=== PATIENT | male | born 1980 | race Caucasian/White ===

== ENCOUNTER 2024-07-23 14:30 | Inpatient (IN) | payer OTHER, SELFPAY ==
[2024-07-23] VITALS (9 sets, daily range): BP systolic 115–145; BP diastolic 59–97
--- NOTE | 2024-07-23 12:25 | W.PN.CARDCBS ---
Today's Communication / Plan
-
NSTEMI, Angioplasty with stent to LAD
serial troponin to peak
DAPT
Cardiac rehab
Impression / Plan
-
This is a summary, H&P scanned
PCP: Ammy Baeza MD
CDY: Ayaz Norris MD (new to pt)
43-year-old male with history of hyperlipidemia, tobacco use disorder and daily alcohol use who c/o over 24 hours of intermittent chest and throat burning. He had began having CP 'out of nowhere' at about 10-11 pm the previous night that continued
after he awakened into the day. CP became worse radiating to left arm and he presented to ER. Denied SOB, nausea or vomiting, fever or cough. No FH of early CAD. His troponin HS continues to trend up 59-201-210. EKG with anterior TWI. He is being
transferred today for [facility].
Impression:
NSTEMI
Hyperlipidemia
Active smoker
Daily ETOH use
Anxiety
h/o hernia repair
h/o appendectomy
Arthritis L hip post THR 2020
07/23/24 ECHO- LVEF 55%, no WMA, no sig valvular disease
Plan:
Admit IVU post PCI LAD
serial troponin to peak
DAPT ASA/Plavix
Check Lipids - start Atorvastatin 80mg
New start to BB, add JW/ARB if BP elevated
smoking cessation - only smoking 5/day, for 20yrs, nicotine patch declined
ETOH use d/o - 2-3 beers daily, reinforced abstinence, MSAS protocol to assess for w/d
Cardiac rehab c/s
f/u ATC at d/c 2-4 weeks
continue to monitor on tele 24-48 hrs
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
Subjective
Date of Service: July 23, 2024
on arrival to r and d lab technician 02/18 chest pain, denies sob
Physical Exam
Physical Exam
deferred as being prepped and draped on r and d lab technician table
[2024-07-23 14:25] LABS: Troponin I 0.547 ng/ml
--- NOTE | 2024-07-23 14:32 | ITS.CL.ANGIO ---
[facility] - Angioplasty
Angioplasty
Procedure Report:
LEFT HEART CATHETERIZATION
Date of Procedure: July 23, 2024
Procedures performed:
1: Coronary angiography
2: Left ventriculography
3: Percutaneous coronary intervention of proximal left anterior descending artery with placement of a 3.0 x 26 mm [place] stent postdilated at high pressure with a 3.5 mm diameter noncompliant balloon at the ostium and a 3.25 mm diameter balloon
distally
Primary Care Physician: Dr. Ammy Baeza
Primary Administration Specialist: Dr. Ayaz Norris
INDICATION: The patient is a 43-year-old smoker who presents with a non-STEMI. On arrival lab he is reporting 4 out of 10 chest pain. EKGs are benign and echo shows no clear regional wall motion abnormality but troponins are low-level positive.
ACCESS: The patient was prepped and draped in usual sterile fashion. A 6 Nauruan sheath was placed in the right radial artery using the Seldinger over the wire technique.
HEMODYNAMIC FINDINGS (mmHg):
LV(s/d,EDP): 113/18, 26
Ao(s/d,m): 113/77, 94
ANGIOGRAPHIC FINDINGS:
Single-plane Left Ventriculography in [facility]NIGHT Projection: Preserved LV systolic function with no clear regional wall motion abnormalities. Visually estimated ejection fraction 55%. No significant mitral regurgitation.
Coronary Angiography:
Dominance: Right
Left Main: Normal
Left Anterior Descending: Hazy ulcerated proximal 80% stenosis and a medium caliber left anterior descending artery. The mid and distal LAD are widely patent and gives rise to 3 small to medium caliber diagonal branches. All vessels have distal
normal flow.
Left Circumflex: The left circumflex is a relatively large caliber nondominant system that gives rise to 3 major obtuse marginal branches. These vessels are widely patent with normal flow and no focal obstructive disease. There is a smooth 20%
stenosis at the first OM1 takeoff.
Right Coronary: The right coronary artery is a medium caliber dominant vessel that gives rise to a medium caliber posterior descending artery and smaller posterior left ventricular branch. These vessels are widely patent with normal flow.
Percutaneous Coronary Intervention (PCI): In light of the above angiographic findings I elected to proceed with a PCI of the culprit proximal LAD lesion. The patient was pretreated with heparin and aspirin. A loading dose of clopidogrel 600 mg was
given on the table at the end of the case. A 6 Nauruan XB 3.5 guiding catheter was used to engage the left main. A Hi-Torque floppy wire was easily advanced into the distal LAD. Predilation was performed with a 2.0 x 20 mm balloon. Next a 3.0 x
26 mm Hayder drug-eluting stent was deployed in the proximal LAD. The distal portion of the stent was postdilated at 16 janet with a 3.25 mm diameter noncompliant balloon. The midportion of the stent and proximal edge was postdilated with a 3.5 mm
diameter noncompliant balloon at 16 janet.
FINAL RESULT: 0% in-stent residual stenosis with an excellent angiographic result and JEN-3 flow in all vessels.
Fluoroscopy Time (min): 11
Radiation Dose (mGy): 1405
DAP (Gy.cm2): 95
Closure device: None. A TR band was applied for hemostasis at the right wrist.
Complications: None.
ASSESSMENT:
1: Successful PCI of the culprit LAD with placement of drug-eluting stent as described above.
2: Normal LV systolic function with no significant mitral regurgitation.
CONCLUSIONS and RECOMMENDATIONS:
1: Routine post non-STEMI and post drug-eluting stent medical therapy and monitoring.
2: Smoking cessation is most critical intervention to reduce his future morbidity and mortality from vascular events.
Ranjana Doty M.D.
Copy to: Dr. Ammy Baeza
[2024-07-23] MEDS: TYLENOL 650 MG PO ×2 (14:52→18:53)
[2024-07-23] MEDS: NSS 1000 IV (15:03)
--- NOTE | 2024-07-23 16:07 | CM ---
Chart reviewed. Patient is independent of ADLS, lives with his significant other in a 2 STH, 1st level set up, 2 ARNAV, 0 DME. Plan is for the patient to return home. CM to follow
[2024-07-23] MEDS: LIPITOR 80 MG PO (17:02)
--- NOTE | 2024-07-23 17:58 | PTCARENOTE ---
Pt received post procedure at 1441. Pt c/o of mild chest tightness with resolved. Medicated with tylenol as ordered for pain between shoulder blades with partial relief. Right rad band intact with no hematoma or bleeding. OOB to the chair for
dinner. No c/o offered.
[2024-07-23 20:28] LABS: Troponin I 0.377 ng/ml
[2024-07-24 04:14] VITALS: BP 135/74
[2024-07-24 04:48] LABS: Hemoglobin 13.4 g/dL (13.0-18.0); Mean Corp Hgb Conc. 34.4 g/dL (33.0-37.0); Mean Corpuscular Hgb 28.9 pg (27.0-31.0); Mean Corpuscular Volume 84.1 fL (80.0-94.0); Mean Platelet Volume 10.8 fL (7.4-10.4); Platelet Count 218 10^3/uL (130-400); Red Blood Cell Count 4.64 10^6/uL (4.70-6.10); Red Cell Dist. Width 13.8 % (11.5-14.5); White Blood Cell Count 7.3 10^3/uL (4.8-10.8)
[2024-07-24 05:09] LABS: Blood Urea Nitrogen 16 mg/dl (9-20); Calcium 9.7 mg/dl (8.4-10.2); Carbon Dioxide 25 mmol/L (22-30); Chloride 105 mmol/L (98-107); Glucose 100 mg/dl (70-99); HDL Cholesterol 53 mg/dl; LDL Cholesterol, Calculated 180 mg/dl; Potassium 4.1 mmol/L (3.5-5.1); Sodium 139 mmol/L (135-145); Total Cholesterol 283 mg/dl (50-199); Triglyceride 251 mg/dl (10-149); Very Low Density Lipoprotein 50 mg/dl (0-30); eGFR > 60.00
[2024-07-24 05:25] LABS: Troponin I 0.305 ng/ml
[2024-07-24 07:35] VITALS: BP 135/86
[2024-07-24 08:03] LABS: ACT-LR - POC 250 Seconds (116-155)
[2024-07-24 08:05] LABS: ACT-LR - POC 250 Seconds (116-155)
--- NOTE | 2024-07-24 08:05 | W.PN.CARDCBS ---
Addendum entered and electronically signed by Rafa Vasquez MD 07/24/24 09:04:
Attending addendum: Patient seen and examined. 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 Briefly, 43-year-old gentleman with hyperlipidemia, tobacco, daily alcohol use who was admitted to [facility] with
complaints of substernal chest pressure and ruled in for non-ST segment elevation myocardial infarction. He was referred for coronary angiography and underwent successful stenting of the proximal LAD by Dr. Bret Doty on 07/23/2024. He is
postprocedure and feeling well. No chest pain overnight.
GEN: AAO x 3. No acute distress
HEENT: NC/AT, sclera are anicteric, hearing normal.
LUNGS: Clear in the anterolateral lung richardson bilaterally. No wheezing
CV: Regular rate and rhythm. Normal S1/S2. Murmur: None
EXT: Radial pulse palpable with no bruit
NEURO: No focal neurologic deficits
RECOMMENDATION
-Stable for discharge. Discussed the need to remain compliant with dual antiplatelet therapy
-Blood pressures overnight have been high at times. Will continue oral beta-kami and initiate low-dose therapy with lisinopril.
-Follow-up has been arranged with Dr. García
Original Note:
Today's Communication / Plan
-
DAPT w/asa, plavix
change statin to crestor 20mg/daily dt prior myalgia with lipitor
cardiac rehab today
followup w/Dr. García
home today
Impression / Plan
-
PCP: Ammy Baeza MD
CDY: Darrell García MD
43-year-old male with history of hyperlipidemia, tobacco and daily alcohol abuse who c/o over 24 hours of intermittent chest and throat burning. He had began having CP 'out of nowhere' at about 10-11pm the previous night that continued after he
awakened into the day. CP became worse radiating to left arm and he presented to ER. Denied SOB, nausea or vomiting, fever or cough. No FH of early CAD. His troponin HS continues to trend up 59-201-210. EKG with anterior TWI. Transferred for [facility].
LHC 07/23- Hazy ulcerated proximal 80% stenosis, s/p successful PCI/CARLOS
ECHO 07/23 (at [facility])- LVEF 55%, no WMA, no sig valvular disease
IMPRESSION:
NSTEMI
s/p prox LAD PCI, 07/23/24
Hyperlipidemia
Active smoker
Daily ETOH abuse
Anxiety
h/o hernia repair
h/o appendectomy
Arthritis L hip post THR 2020
PLAN:
Tele- SB/SR, no vt/arrhythmia
radial cath site stable
Peak troponin 0.547
Echo with preserved EF
DAPT w/asa, plavix
Lipid profile noted- disturbingly high- pt states prior myalgias with lipitor
will new start crestor 20mg daily and observe for myalgia
Tolerating new start metoprolol 25/d
BP modestly elevated 130-140s- new start lisinopril 2.5/d
smoking cessation - only smoking 5/day, for 20yrs, nicotine patch declined- cessation discussed and strongly encouraged- he is agreeable
ETOH abuse - 2-3 beers daily, no evidence of withdrawal while here- reinforced abstinence
Cardiac rehab
Followup w/Dr. García as scheduled
Home today
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
Subjective
Date of Service: July 24, 2024
Denies cp/palps/dyspnea
oob ambulating
radial cath site without pain
Objective
Labs:
07/24/24 04:25
07/24/24 04:25
Labs
Hgb 13.4 g/dL (13.0-18.0) 07/24/24 04:25
Hct 39.0 % (39.0-52.0) 07/24/24 04:25
Plt Count 218 10^3/uL (130-400) 07/24/24 04:25
Sodium 139 mmol/L (135-145) 07/24/24 04:25
Potassium 4.1 mmol/L (3.5-5.1) 07/24/24 04:25
BUN 16 mg/dl (9-20) 07/24/24 04:25
Creatinine 1.2 mg/dL (0.7-1.3) 07/24/24 04:25
Glucose 100 mg/dl (70-99) H 07/24/24 04:25
Troponins
07/23/24 07/23/24 07/24/24
13:44 19:53 04:25
Troponin I 0.547 H* 0.377 H* D 0.305 H*
Vital Signs and I&O:
Vital Signs
Temp Pulse Resp BP Pulse Ox
98 F 58 20 135/74 95
07/24/24 07:33 07/24/24 04:15 07/24/24 07:33 07/24/24 04:14 07/24/24 07:33
Vital Signs
Temp Pulse Resp BP Pulse Ox
98 F 58 20 135/74 95
07/24/24 07:33 07/24/24 04:15 07/24/24 07:33 07/24/24 04:14 07/24/24 07:33
Intake & Output
07/22/24 07/23/24 07/24/24 07/25/24
06:59 06:59 06:59 06:59
Intake Total 480 / 480
Balance 480 / 480
Physical Exam
Physical Exam
AAOx3, MAEE 5/5
RRR S1 S2 no murmurs
CTA bilat, non labored
soft abd, + bs
right radial cath site without ht/bleeding, non tender
bilat extremities w/palpable distal pulses, no edema
[2024-07-24 08:08] LABS: ACT-LR - POC > 397 Seconds (116-155)
[2024-07-24] MEDS: LOW STRENGTH ASPIRIN 81 MG PO (08:28)
[2024-07-24] MEDS: PLAVIX 75 MG PO (08:28)
[2024-07-24] MEDS: TOPROL XL 25 MG PO (08:28)
--- NOTE | 2024-07-24 09:15 | W.DS.TRANS ---
DC Summary - Trust Manager Assistant
-
Discharge Instructions:
Discharge Diagnosis/Procedures NSTEMI, angioplasty with stent to Left anterior
descending artery
Diet Low Cholesterol
Driving Restrictions No driving for 24 hours
Other Services Cardiac Rehab
Instructions:
Stand-Alone Forms: DC Instructions- Cath/EP Lab
Changes to Home Medications: Yes
Discharge Medications:
DC Medications w/original date entered in [employer]
multivitamin 1 tab PO DAILY 07/23/24
aspirin 81 mg chewable tablet 81 mg PO DAILY #90 tabs 07/24/24
clopidogrel 75 mg tablet 75 mg PO DAILY #90 tabs 07/24/24
lisinopril 2.5 mg tablet 2.5 mg PO DAILY #90 tabs 07/24/24
metoprolol succinate 25 mg tablet,extended release 24 hr 25 mg PO DAILY #90 tabs 07/24/24
rosuvastatin 20 mg tablet 20 mg PO QPM #90 tabs 07/24/24
Home Medication Changes
ALL meds are new except mvi
Pending Results: No
[2024-07-24] MEDS: ZESTRIL 2.5 MG PO (09:30)
--- NOTE | 2024-07-24 10:33 | PTCARENOTE ---
pt sr on the monitor, hr in the 50s-60s, vss. pt offers no complaints at this time. pt ambulating in room and blancas and tolerating well. pt educated on plan of care and pt verbalized understanding.
d/c instructions read to pt and pt verbalized understanding. iv and tele removed .pt left via wheelchair with staff member.
== END 2024-07-24 10:36 | disposition home or self-care (01) | DRG 322 ==
LOC: IVU 14:30
PROVIDERS: Nurse Practitioner Adult Health; ADMITTING PHYSICIAN Internal Medicine Interventional Cardiology; FAMILY PHYSICIAN Family Medicine
PROC: B211YZZ Fluoroscopy of Multiple Coronary Arteries using Other Contrast (ICD-10-PCS; 2024-07-23)
PROC: B215YZZ Fluoroscopy of Left Heart using Other Contrast (ICD-10-PCS; 2024-07-23)
PROC: 4A023N7 Measurement of Cardiac Sampling and Pressure, Left Heart, Percutaneous Approach (ICD-10-PCS; 2024-07-23)
PROC: 027034Z Dilation of Coronary Artery, One Artery with Drug-eluting Intraluminal Device, Percutaneous Approach (ICD-10-PCS; 2024-07-23)
DX: I21.4 Non-ST elevation (NSTEMI) myocardial infarction (principal); E78.5 Hyperlipidemia, unspecified; F41.9 Anxiety disorder, unspecified; I25.10 Atherosclerotic heart disease of native coronary artery without angina pectoris; Z96.642 Presence of left artificial hip joint; F10.10 Alcohol abuse, uncomplicated; F17.200 Nicotine dependence, unspecified, uncomplicated
CPT/HCPCS: 80048; 80061; 84484; 85027; 85347; 93005; 93458; C1725; C1769; C1874; C1887; C1894; C9600; Q9967

== ENCOUNTER 2025-01-19 09:16 | Emergency (ER) | payer OTHER, SELFPAY ==
[2025-01-19 09:20] VITALS: BP 136/80
[2025-01-19 09:22] VITALS: BMI 34.4
[2025-01-19 09:39] LABS: % Basophils 0.6 % (0-2); % Eosinophils 3.2 % (0-6); % Immature Granulocytes 0.7 % (0-0.5); % Lymphocytes 29.2 % (20.5-51.1); % Monocytes 9.7 % (1.7-9.3); % Neutrophils 56.6 % (42.2-75.2); Absolute Eosinophils 0.2 10^3/uL (0-0.7); Absolute Immature Granulocytes 0.1 10^3/uL (0-0.05); Absolute Monocytes 0.7 10^3/uL (0.1-0.6); Absolute Neutrophils 3.9 10^3/uL (1.4-6.5); Hematocrit 40.6 % (39.0-52.0); Hemoglobin 13.8 g/dL (13.0-18.0); Mean Corpuscular Hgb 29.1 pg (27.0-31.0); Mean Corpuscular Volume 85.7 fL (80.0-94.0); Mean Platelet Volume 10.4 fL (7.4-10.4); Nucleated Red Blood Cells % 0 % (-); Platelet Count 208 10^3/uL (130-400); Red Blood Cell Count 4.74 10^6/uL (4.70-6.10); Red Cell Dist. Width 13.6 % (11.5-14.5); White Blood Cell Count 6.9 10^3/uL (4.8-10.8)
[2025-01-19 09:51] LABS: ALT (SGPT) 50 U/L (0-50); AST (SGOT) 32 U/L (17-59); Albumin 4.6 g/dl (3.5-5.0); Alkaline Phosphatase 91 U/L (38-126); Blood Urea Nitrogen 17 mg/dl (9-20); Calcium 9.5 mg/dl (8.4-10.2); Carbon Dioxide 24 mmol/L (22-30); Chloride 104 mmol/L (98-107); Estimated Creatinine Clearance 111 ml/min; Glucose 122 mg/dl (70-99); Potassium 4.1 mmol/L (3.5-5.1); Sodium 136 mmol/L (135-145); Total Bilirubin 0.7 mg/dl (0.2-1.3); Total Protein 7.2 g/dl (6.3-8.2); eGFR > 60.00
[2025-01-19 10:00] VITALS: BP 124/75
[2025-01-19 10:03] LABS: Troponin I < 0.012 ng/ml
[2025-01-19 10:48] LABS: D-Dimer < 0.27 ug/mlFEU (0.00-0.50)
[2025-01-19 11:00] VITALS: BP 119/72
--- NOTE | 2025-01-19 11:14 | CON.CAR ---
Addendum entered and electronically signed by Rafa Rocha MD 01/19/25 16:10:
44-year-old man admitted in July with non-ST segment elevation [place] and subsequent proximal LAD PCI. Now with substernal tightness essentially at rest, intermittently since his procedure. He was on a ladder at the time his symptoms started.
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 There was an interval between is reaching the top of the stairs, climbing the ladder
and subsequently developing right symptoms. He states he is very anxious. He speaks about panic attacks. He is still smoking rarely and still drinks alcohol. He says he went snowboarding in [place] recently, going 60 miles an hour, on
clopidogrel and aspirin.
PMH: Tobacco use, EtOH, anxiety
PSH: Herniorrhaphy, appendectomy total hip arthroplasty 2020, hyperlipidemia
119/72, pulse 69, respiratory 14, afebrile, pulse 99, head neck exam is unremarkable, lungs are clear, regular rate and rhythm without murmurs or gallops, JVD okay, carotids okay, abdomen benign, pulses intact
Chest x-ray no active disease
EKG sinus rhythm, normal ECG
Hemoglobin 13.8, white count 6.9, platelets 208,
Initial troponin undetectable, BUN and creatinine 17 and 1.1. Second troponin also undetectable.
Impression:
CAD status post LAD PCI July 2024 for NSTEMI
Anxiety
History of EtOH use
Ongoing rare tobacco use
Hyperlipidemia
Plan:
His symptoms are potentially more consistent with anxiety than ACS or CAD. He still has excellent exercise capacity and the symptoms occurred standing immobile on a ladder. He is at 3-4 similar episodes at rest. He exerts himself at high levels
without difficulty. Troponin is undetectable and EKG is normal.
He initially requested a cardiac catheterization but after discussion we will follow-up with Dr. García who can determine if further testing is indicated.
I recommended that he completely abstain from alcohol and tobacco. He may benefit from counseling for his anxiety. He says he has PTSD after watching his father when patient was 14 years old.
Targets for cholesterol and blood pressure reviewed.
Okay for discharge from the emergency department.
Original Note:
Consultation
Consultation Request
Date/Time Consultation Requested: 01/19/25
Date/Time Consultation Performed: 01/19/25
Requesting Provider: Dr. Lowry in the ER
Performing Provider: Dr. MINDY Rocha
Reason for Consultation: Chest pain, h/o CAD
Medical History
-
History of Present Illness:
Patient came to ER today with CP while at work and cardiology has been consulted. Patient was admitted to [facility] 07/2024 with throat burning/tightness and shoulder blade pain and had elevated troponin, but echo at that time showed no WMA and no
significant ECG changes. Patient was transferred to for cardiac catheter he was found to have a hazy ulcerated proximal 80% LAD that was stented with a 3 mm Hayder CARLOS. The LM was normal, circumflex was normal and widely patent and the RCA was
also widely patent. Patient was discharged to home on aspirin and Plavix and reports compliance. He was seen by his primary machine welder at [facility] on 12/04/2024 and his outpatient dose of Toprol-XL 25 mg daily was stopped at that time due to fatigue,
but his lisinopril was continued. Patient reports that he is having intermittent episodes of sudden onset chest pressure and SOB and these episodes typically happen at rest without clear provocative factors. Patient reports that he will get some
relief at home by taking a Benadryl and an extra aspirin 81 mg. Patient reports the symptoms feel different than his ACS symptoms. Today patient was at work and after climbing 4 flights of stairs while carrying all of his equipment he was working
on top of the ladder, no symptoms at all climbing the stairs or climbing the ladder, but while continuing to work he started with chest pressure and felt as though he was having another attack. He tried sitting and resting and taking a Benadryl,
but had no relief and so he came to ER. His initial troponin is undetectable and ECG is SR without acute ST changes.
PMH:
CAD
s/p NSTEMI and 3 mm [place] CARLOS to prox LAD 07/23/24
Smoker
used to smoke daily and now only occasionally on weekends
Former ETOH use disorder
used to drink daily and now on weekends only
Hyperlipidemia
Anxiety
Past Medical History
Past Medical History: Other (in HPI)
Past Surgical History: Appendectomy, Cardiac (s/p 3 mm Hayder CARLOS to the proximal LAD 07/23/2024) and Orthopedic
Social History
Tobacco: Smoker (former daily smoker and cut down to occasionally on weekends while drinking)
Alcohol: Occasional ()
Personal: Partner
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
Family History
Family History: Cancer and Diabetes
Allergies / Home Medications
Allergy/AdvReac Type Severity Reaction Status Date / Time
No Known Allergies Allergy Unverified 07/23/24 12:24
�Medication �Instructions �Recorded �Confirmed �Type
multivitamin 1 tab PO DAILY 07/23/24 07/23/24 History
aspirin 81 mg chewable tablet 81 mg PO DAILY #90 tabs 07/24/24 Rx
clopidogrel 75 mg tablet 75 mg PO DAILY #90 tabs 07/24/24 Rx
lisinopril 2.5 mg tablet 2.5 mg PO DAILY #90 tabs 07/24/24 Rx
metoprolol succinate 25 mg 25 mg PO DAILY #90 tabs 07/24/24 Rx
tablet,extended release 24 hr
rosuvastatin 20 mg tablet 20 mg PO QPM #90 tabs 07/24/24 Rx
Review of Systems
-
History Source: Patient
All other systems: Negative unless noted
Physical Exam
Vital Signs
Temp Pulse Resp BP Pulse Ox
97.7 F 71 16 124/75 98
01/19/25 09:20 01/19/25 10:00 01/19/25 10:04 01/19/25 10:00 01/19/25 10:00
GEN: NAD. AAOx3
HEENT: EOMI, MMM, wearing glasses
LUNGS: RA. CTA B/L, no wheeze
CV: RA. Reg, S1/S2, no murmur
ABD: soft, BS+, NT, ND
EXT: No clubbing, cyanosis, lesions or edema B/L. +2 B/L PT pulses
NEURO: Gross non-focal
SKIN: Warm, dry and pink. No rash
Lab Results
01/19/25 09:27
01/19/25 09:26
Troponin I < 0.012 ng/ml 01/19/25 09:26
Impression / Plan
-
PCP: Ammy Baeza MD
CDY: Darrell García MD
Impression:
Chest pain 01/19/25
CAD
s/p NSTEMI and 3 mm Hayder CARLOS to prox LAD 07/23/24
Smoker
used to smoke daily and now only occasionally on weekends
Former ETOH use disorder
used to drink daily and now on weekends only
Hyperlipidemia
Anxiety
ECHO 07/23/24: [facility] study, LVEF 55%, no WMA, no sig valvular disease
Plan:
-Patient came to ER today with CP while at work and cardiology has been consulted. Patient was admitted to [facility] 07/2024 with throat burning/tightness and shoulder blade pain and had elevated troponin, but echo at that time showed no WMA and no
significant ECG changes. Patient was transferred to for cardiac catheter he was found to have a hazy ulcerated proximal 80% LAD that was stented with a 3 mm [place] CARLOS. The LM was normal, circumflex was normal and widely patent and the RCA was
also widely patent. Patient was discharged to home on aspirin and Plavix and reports compliance. He was seen by his primary machine welder at [facility] on 12/04/2024 and his outpatient dose of Toprol-XL 25 mg daily was stopped at that time due to fatigue,
but his lisinopril was continued. Patient reports that he is having intermittent episodes of sudden onset chest pressure and SOB and these episodes typically happen at rest without clear provocative factors. Patient reports that he will get some
relief at home by taking a Benadryl and an extra aspirin 81 mg. Patient reports the symptoms feel different than his ACS symptoms. Today patient was at work and after climbing 4 flights of stairs while carrying all of his equipment he was working
on top of the ladder, no symptoms at all climbing the stairs or climbing the ladder, but while continuing to work he started with chest pressure and felt as though he was having another attack. He tried sitting and resting and taking a Benadryl,
but had no relief and so he came to ER. His initial troponin is undetectable and ECG is SR without acute ST changes.
-ECG reviewed by me is SR without acute ST changes
-Initial troponin undetectable and a second troponin is pending
-Current symptoms have been occurring intermittently since PCI 6 months ago and overall feel different than ACS symptoms. Recommend ischemic evaluation and if no concern for new CAD would recommend evaluation for possible anxiety/PTSD.
Specifically told patient that anxiety/PTSD would be a diagnosis of exclusion.
-Initial recommendation is for stress test pending result of his second troponin, the patient currently feels as though he would prefer cardiac cath. We discussed the risk versus the benefit of cardiac cath including risk of heart attack stroke or
. We will await the second troponin before we make any final decision.
-Patient has a sleep study ordered, but has not called the company to request the apparatus be mailed to him, he says he is going to do this.
-Continue aspirin and Plavix daily
-Toprol-XL was stopped by his primary machine welder
-Continue lisinopril 2.5 mg daily
-New to Crestor 40 mg daily last admission and then his primary machine welder added Gege
[2025-01-19 12:00] VITALS: BP 136/85
[2025-01-19 13:00] VITALS: BP 131/83
[2025-01-19 13:18] LABS: Troponin I < 0.012 ng/ml
[2025-01-19 14:08] VITALS: BP 131/88
--- NOTE | 2025-01-19 14:21 | ED.GENMED ---
History of Present Illness
General
Chief Complaint: Chest Pain
Source: patient
Exam Limitations: none
Time Seen by Provider: 01/19/25 09:30
Nursing documentation reviewed up to this point in time: agreed with
History of Present Illness
History of Present Illness:
44-year-old male presents emergency department due to chest pain. He was working on a ladder, and began having chest pain and shortness of breath. He denies any symptoms at this time. He is unsure if his anxiety. In July he had a stent
placed by Dr. Doty.
Past History
Past History
ED Past Medical History: CAD, HTN and Hypercholesterolemia
ED Past Surgical History: Appendectomy, Cardiac (Coronary artery stent LAD July 2024), Orthopedic (Left total hip replacement) and Other (Inguinal hernia repair)
Social History
Tobacco: Former smoker
Alcohol: None
Drug: None
Personal:
Living: with family
Employment: Employed
Review of Systems
Review of Systems
Allergies reviewed?: Yes
All Other Systems: Not applicable
Constitutional: Reports no symptoms
EENT: Reports no symptoms
Respiratory: Reports trouble breathing
Cardiac: Reports chest pain
ABD/GI: Reports no symptoms
: Reports no symptoms
Musculoskeletal: Reports no symptoms
Skin: Reports no symptoms
Neurological: Reports no symptoms
Endocrine: Reports no symptoms
Hematologic/Lymphatic: Reports no symptoms
Psychiatric: Reports no symptoms
Phy Exam
Physical Exam
Physical Exam:
Physical Exam
General: no apparent distress, not acutely ill
Neck: supple. no meningeal signs. normal posterior pharynx
Heart: s1/s2 regular rate and rhythm, no murmur. equal radial
pulses.
HEENT: Pupils equal round reactive to light, EOMI
Lungs: no acute respiratory distress. clear bilaterally
Abdomen: normal bowel sounds. not tender. no CVAT
Neuro: alert and oriented. no focal neurological deficits cranial nerves II through XII intact
Skin: no rash
Psychiatric: well kept. interactive and cooperative
Extremities: no edema. no calf tenderness. negative homans. good distal pulses
Scores
Heart Score for Chest Pain Patients
STEMI patient?: No
History: Slightly or Non-Suspicious
ECG: Normal
Age: </= 45 years
Risk Factors: >/= 3 Risk Factors or History of CAD
Troponin: </= Normal Limit
Heart Score for Chest Pain Patients: 2
Heart Score Risk: 2.5% MACE over next 6 weeks
Course
Orders/Labs/Results
Orders:
Orders
01/19/25 09:23
Electrocardiogram (*1) Urgent
Reason for Study: Chest Pain
01/19/25 09:24
EKG- Treatment ONCE
01/19/25 09:26
Comprehensive Metabolic Panel Urgent
Troponin I Urgent
01/19/25 09:27
Complete Blood Count/With Diff Urgent
01/19/25 10:10
CR Chest - 2 Views Urgent
Comment:
Reason For Exam: chest pain, short of breath
01/19/25 10:16
D-Dimer Urgent
01/19/25 12:42
Troponin I Urgent
Abnormal Lab Results
01/19/25 01/19/25
09 09:27
Abs Immat Gran (auto) 0.1 H 10^3/uL
(0-0.05)
Absolute Monos (auto) 0.7 H 10^3/uL
(0.1-0.6)
Immature Gran % 0.7 H %
(0-0.5)
Monocytes % 9.7 H %
(1.7-9.3)
Glucose 122 H mg/dl
(70-99)
01/19/25 09:27
01/19/25 09:26
Vital Signs
Initial and Last Documented VS:
Initial Vital Signs
Temp Pulse Resp BP Pulse Ox
97.7 F 76 16 136/80 98
01/19/25 09:20 01/19/25 09:20 01/19/25 09:20 01/19/25 09:20 01/19/25 09:20
Last Documented Vital Signs
Temp Pulse Resp BP Pulse Ox
97.7 F 64 15 131/83 95
01/19/25 09:20 01/19/25 13:30 01/19/25 13:30 01/19/25 13:00 01/19/25 13:30
MDM/Problems Addressed
Differential Diagnosis Includes:
ACS, PE
MDM/Problems Addressed:
44-year-old male with chest tightness, doubt ACS or PE. Discussed with Dr. MINDY Rocha, who can be discharged and follow-up with primary care. Serial troponins negative.
Chronic conditions affecting care: CAD
Acute Exacerbation and/or Progression of Chronic Illness: CAD
*Radiology
Radiology exam reviewed: radiology read reviewed (Chest x-ray no acute findings)
*Pulse Oximetry
Patient hypoxic: no
*EKG
Interpreted by ED Provider?: Yes
EKG Intrepretation Date: 01/19/25
EKG Intrepretation Time: 09:31
Interpretation: normal
Comparison EKG: changes noted
Heart Rate: 69
Rate: normal
Rhythm: sinus
Swatara: normal axis
Interval: normal interval
QRS Pattern: normal QRS
Ischemia: no ischemia
*Purchasing Internship Interpretation
Rate: normal
Interpretation: normal
Heart Rate: 66
Rhythm: sinus
*Critical Care Note
Total Time (30-74mins, 75-104mins- exclusive of procedures): Not Applicable
Data Reviewed
Review of Other/Old Records Reveals: Operative Reports (LAD stent July 2024)
Source: records
Patient Management
Social determinants of health affecting care: Living situation and Strong social support
Discussion with other providers: Rib Sawyer (MINDY Rocha, cardiology)
Escalation/DeEscalation of care consider admission/obs:
admit indicated
ED Attending Note
-
Portions of this chart may have been created with voice recognition software.� Occasional wrong word or��sound alike� substitutions may have occurred due to the inherent limitations of voice recognition software.
Discharge Plan
Departure
Patient Disposition: Home (Routine Discharge)
Date of Disposition: 01/19/25
Time of Disposition: 14:16
Patient with high blood pressure during this ER visit?: Yes
Condition: Good
Discharge Problem:
Chest pain
Instructions: Chest Pain NON-[facility] Medical Social Consultant Follow Up, BLOOD PRESSURE
Prescriptions:
No Action
multivitamin Tablet
1 tab PO DAILY
aspirin 81 mg Tablet,Chewable
81 mg PO DAILY Qty: 90 3RF
clopidogrel 75 mg Tablet
75 mg PO DAILY Qty: 90 3RF
metoprolol succinate 25 mg Tablet Extended Release 24 Hr
25 mg PO DAILY Qty: 90 3RF
lisinopril 2.5 mg Tablet
2.5 mg PO DAILY Qty: 90 3RF
rosuvastatin 20 mg Tablet
20 mg PO QPM Qty: 90 3RF
Referrals:
Ranjana Norris MD [Affiliate] - Call in 1-3 days for appt
Alva Michaud CRNP [Family Provider] -
Interventions
Interventions:
*Risk Screen - Suicide Last Done: 01/19/25 09:23
*General Assessment Last Done: 01/19/25 09:22
*Neglect/Abuse Screening Last Done: 01/19/25 09:23
*ED- Fall Risk Assessment Last Done: 01/19/25 09:22
*ED COVID-19 Vaccine History Last Done: 01/19/25 09:22
ED- Cardiac Assessment Last Done: 01/19/25 09:23
Discharge Date and Time
Print Language: ITALIAN
== END 2025-01-19 14:36 | disposition home or self-care (01) ==
LOC: EMR 09:16
PROVIDERS: EMERGENCY PHYSICIAN Emergency Medicine; FAMILY PHYSICIAN Nurse Practitioner Family; OTHER PHYSICIAN Internal Medicine Cardiovascular Disease
DX: R07.89 Other chest pain (principal); I10 Essential (primary) hypertension; Z87.891 Personal history of nicotine dependence
CPT/HCPCS: 99284; 71046; 80053; 84484; 85025; 85379; 93005